=== PATIENT | female | born 2000 | race Hispanic/Latino ===

== ENCOUNTER 2023-08-17 19:05 | Emergency (ER) | payer OTHER ==
[~2023-08-17] VITALS: Ht 157.5 cm; Wt 60.3 kg
[2023-08-17 19:11] VITALS: BP 125/62; PULSE 74; RESP 18; O2SAT 98
[2023-08-17] MEDS ORDERED: MOXIOS OD (19:24)
== END 2023-08-17 19:29 | disposition home or self-care (01) ==
LOC: EDH 19:05
DX: H10.89 Other conjunctivitis (principal)